=== PATIENT | female | born 1980 | race Caucasian/White ===

== ENCOUNTER 2018-03-08 08:14 | Day surgery (SDC) | payer BC ==
[~2018-03-08 08:14] MED LIST: Acetaminophen TAB* 325 MG PO ONE; Buffered Lidocaine 0.9% SYRIN* 5 ML/SYR SYRINGE INTRADERM ONE; Gabapentin CAP(*) 300 MG PO ONE; Levalbuterol 0.63MG/3ML NEB* UNIT OF USE INH ONE; celeCOXIB CAP* 100 MG PO ONE
[2018-03-08] MEDS ORDERED: Levalbuterol 0.63MG/3ML NEB* UNIT OF USE INH ONE ×2 (08:20→08:49)
[2018-03-08] MEDS ORDERED: Gabapentin CAP(*) 300 MG ONE (08:20)
[2018-03-08] MEDS ORDERED: Acetaminophen TAB* 325 MG ONE (08:20)
[2018-03-08] MEDS ORDERED: celeCOXIB CAP* 100 MG ONE (08:20)
[2018-03-08] MEDS ORDERED: ceFAZolin 2 GM in NS PREMIX(*) 2 GM/100 ML BAG IVPB ONE (08:21)
[2018-03-08] MEDS ORDERED: fentaNYL* 50 MCG/ML 2 ML VIAL (100 MCG VIAL) ONE ×2 (10:13→11:33)
[2018-03-08] MEDS ORDERED: Midazolam* 1 MG/ML 2 ML VIAL (2 MG) ONE (10:14)
[2018-03-08] MEDS ORDERED: Lidocaine 2% PF * 5 ML VIAL ONE (11:11)
[2018-03-08] MEDS ORDERED: Dexamethasone IV* 4 MG/ML 1 ML (4 MG) ONE (11:11)
[2018-03-08] MEDS ORDERED: Ondansetron INJ* 2 MG/ML VIAL ONE (11:11)
[2018-03-08] MEDS ORDERED: Propofol* 10 MG/ML 20 ML BTL IV PUSH ONE (11:11)
[2018-03-08] MEDS ORDERED: Famotidine IV* 10 MG/ML 2 ML (20 mg) ONE (11:11)
[2018-03-08] MEDS ORDERED: Bupivacaine 0.5% SDV PF* 30ML VIAL ONE (11:23)
[2018-03-08] MEDS ORDERED: fentaNYL* 50 MCG/ML 2 ML VIAL (100 MCG VIAL) IV PRN (11:26)
[2018-03-08] MEDS ORDERED: HYDROmorphone INJ1* 1 MG/ML SYRINGE IV PRN (11:26)
[2018-03-08] MEDS ORDERED: DiMENhydriNATE IV* 50 MG/ML VIAL IV PUSH PRN (11:26)
[2018-03-08] MEDS ORDERED: PROCHLORPERAZINE INJ 5 MG/ML 2 ML VIAL IV PRN (11:26)
[2018-03-08] MEDS ORDERED: Levalbuterol 0.63MG/3ML NEB* UNIT OF USE INH PRN (11:26)
[2018-03-08] MEDS ORDERED: Ondansetron INJ* 2 MG/ML VIAL IV PRN (11:26)
[2018-03-08] MEDS ORDERED: HYDROcodone/ACETAMIN 5-325 MG* 1 TAB PO PRN ×2 (11:26)
[2018-03-08] MEDS ORDERED: Naloxone* 0.4 MG/ML 1 ML VIAL IV PRN (11:26)
[2018-03-08] MEDS ORDERED: Acetaminophen TAB* 325 MG PO PRN (11:26)
[2018-03-08] MEDS ORDERED: Ketorolac INJ* 30 MG/ML 1 ML VIAL ONE (12:42)
[2018-03-08 14:19] VITALS: BP 131/76
--- NOTE | 2018-03-09 07:35 | RAD ---
INDICATION: Posterior tibial tendinitis COMPARISONS: None relevant TECHNIQUE: Fluoroscopy was provided for a surgical procedure. Total fluoroscopy time is: 5.1 seconds FINDINGS: Spot images demonstrate osteotomy and fusion of the calcaneus. IMPRESSION: FLUOROSCOPY WAS PROVIDED FOR A SURGICAL PROCEDURE CPT II Codes: G9500
--- NOTE | 2018-03-09 11:20 | OP ---
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 OPERATIVE PROCEDURE: Posterior tibial reconstruction with FPL graft, medial calcaneal osteotomy, and lateral column lengthening. DESCRIPTION OF PROCEDURE: The patient was taken to the operating room where lateral positioning was used for the exposure of the lateral calcaneus and calcaneocuboid joint. We subluxed the peroneal tendons dorsally and then cut through the floor of the peroneus longus with the lateral to medial sagittal saw and straight flat osteotome. We translated the calcaneus a cm medially and pinned this with a 60-mm, 6.7 diameter Arthrex screw from the heel to the sustentacular area of the calcaneus. We also exposed the distal calcaneus and longus lateral border just proximal to the calcaneal cuboid joint where a sagittal saw was used to open the lateral cortex. We used an osteotome to open this osteotomy and placed a wedge cut of allograft that had been harvested from femoral head. We fixed this with H plate of the Arthrex screw using 3.5 mm cortical screws. This lateral wound was then irrigated thoroughly and closed with Vicryl and edis as well as nylon for this heel wound. A longitudinal incision was then made medially along the posterior tibial tendon after we removed the bumps from the left hip. Posterior tibial tendon itself was thickened, indurated, and appeared to have chronic tendinotic changes. This was reflected away from the medial navicular, deep to it what we harvested the FPL tendon, traced it distally to the knot of Artemio where it was sewn [id number] to the FHL tendon. We released it at this level, brought it back proximally, en routed it to plantar to dorsal through the medial navicular using a 5.5-mm drill bit. It was sewn over the top of the periosteum using 0 Vicryl sutures. We then created a of the posterior tibial tendon by debriding longitudinally, thinning it out and taking necrotic deeper portion away. It was then advanced back to the underbelly of the navicular periosteum and sewn [id number] into the FPL tendon. We closed the sheath over the FPL repair closing subcu tissue with 2-0 Vicryl edis for the skin. Compression dressing, plaster splint applied. [id number]/[facility] #: [id number] LOPEZ
== END 2018-03-08 14:45 | disposition home or self-care (01) ==
LOC: OR 08:14
PROVIDERS: ATTEND Orthopaedic Surgery
DX: M76.822 Posterior tibial tendinitis, left leg (principal); M21.172 Varus deformity, not elsewhere classified, left ankle; Z87.891 Personal history of nicotine dependence; Z68.32 Body mass index [BMI] 32.0-32.9, adult; F41.8 Other specified anxiety disorders
CPT/HCPCS: 76000; 81025; A9270-GY; C1713; C1776; J0690; J1100; J1885; J2250; J2405; J2704; J3010

== ENCOUNTER → 2019-01-31 05:42 | Day surgery (SDC) | payer BC ==
[~2019-01-31 05:42] MED LIST changes: +Acetaminophen TAB* 325 MG ONE; -Acetaminophen TAB* 325 MG PO ONE; +Acetaminophen TAB* 325 MG PO PRN; -Buffered Lidocaine 0.9% SYRIN* 5 ML/SYR SYRINGE INTRADERM ONE; +Bupivacaine 0.5%* 50 ML MDV VIAL ONE; +Dexamethasone IV* 4 MG/ML 1 ML (4 MG) ONE; -Gabapentin CAP(*) 300 MG PO ONE; +Gelfoam Sponge SIZE 100* SPONGE ONE; +Ketorolac INJ* 30 MG/ML 1 ML VIAL ONE; -Levalbuterol 0.63MG/3ML NEB* UNIT OF USE INH ONE; +Lidocaine 2% PF * 5 ML VIAL ONE; +Midazolam* 1 MG/ML 2 ML VIAL (2 MG) ONE; +Naloxone* 0.4 MG/ML 1 ML VIAL IV PRN; +Ondansetron INJ* 2 MG/ML VIAL ONE; +PROCHLORPERAZINE INJ 5 MG/ML 2 ML VIAL IV PRN; +Propofol* 10 MG/ML 20 ML BTL ONE; +ROPIVACAINE 5 MG/ML 30 ML BTL (0.5%) ONE; +Sevoflurane* BOTTLE ONE; +ceFAZolin 2 GM in NS PREMIX(*) 2 GM/100 ML BAG IVPB ONE; -celeCOXIB CAP* 100 MG PO ONE; +fentaNYL* 50 MCG/ML 2 ML VIAL (100 MCG VIAL) ONE; +oxyCODONE TAB* 5 MG TAB ONE
[2019-01-31] MEDS: fentaNYL* 50 MCG/ML 2 ML VIAL (100 MCG VIAL) IV PRN ×2 (09:53→10:36)
[2019-01-31 10:32] VITALS: BP 126/81
--- NOTE | 2019-01-31 14:19 | OP ---
DATE OF OPERATION: 01/31/19 - [facility] DATE OF : 76 ATTENDING SURGEON: Juan Bennett MD. CATTLE TESTER: JAMAL Block. PRE-OP DIAGNOSIS: Nonunion left calcaneal osteotomy. POST-OP DIAGNOSIS: Nonunion left calcaneal osteotomy. OPERATIVE PROCEDURE: Internal fixation left calcaneus osteotomy nonunion, hardware removal, and tibial bone graft. DESCRIPTION OF PROCEDURE: The patient was taken to the operating room where lateral positioning was used. We opened up 5 cm over the lateral hind foot incision to develop a plane between the peroneal tendons. Cultures were sent, and there appeared to be an element of metal synovitis around the tendon, dark staining of the tissues. The two locking screws were removed from the previous plate, and we took down the osteotomy site with a Velasquez elevator and prepared the osteotomy surfaces for repeat fixation with the small power bur. Through a 4-cm incision proximally at the tibial tubercle at Gerdy's, we split the ITB band and opened up the lateral cortex with a power bur. We scooped some cancellous bone out of the proximal tibia, placing this well on the nonunion side of the calcaneus. We then closed with 2-0 Monocryl after packing the defect with some allograft chips and some Monocryl for the skin. Distally, we compressed the osteotomy site with the awl wires and used the cuboid plate off of the small Synthes tray to expand the osteotomy and applied compression with the Moorpark pins and locking screws applied. X-rays intraoperatively showed satisfactory fixation. We then closed this wound with 2-0 Vicryl subcu and edis for the skin and a compression dressing plaster splint. [id number]/[facility] #: [id number] MTDD
--- NOTE | 2019-01-31 14:19 | PRO ---
DATE OF PROCEDURE: 01/31/19 PRE-PROCEDURE DIAGNOSIS: Pseudoarthritis, status post left ankle fusion. POST-PROCEDURE DIAGNOSIS: Pseudoarthritis, status post left ankle fusion. INDICATION: The patient had intractable pain postoperatively in her left ankle , requiring postop nerve block with popliteal sciatic nerve block of the left ankle. ESTIMATED BLOOD LOSS: Minimal. DESCRIPTION OF PROCEDURE: The patient was consented for this procedure preoperatively prior to any sedation and she consented to a postoperative procedure if needed. At this time, she is requesting postop pain control with nerve block to which the surgeon was agreeable. She denied any allergies to medications and notes no use of anticoagulants. The patient was placed in the right lateral recumbent position. Her left leg and thigh were prepped and draped in the usual sterile fashion. Ultrasound was used to identify the popliteal artery, left tibial nerve and lateral peroneal nerve. Subsequently, 20 cc of 0.5% ropivacaine plain was injected into the perineural area with a 21-gauge 4-inch EchoStim needle under direct ultrasound visualization. There was negative aspirate of heme. There was no intravascular or intraneural injections. There were no paresthesias. The patient tolerated the entire procedure well with no deficits and had immediate relief of her pain postprocedure. She was then discharged per anesthesia criteria by the PACU nurse. Questions were answered and her concerns otherwise addressed today prior to the procedure. [id number]/[facility] #: [id number] LOPEZ
== END | disposition home or self-care (01) ==
LOC: OR 05:42
PROVIDERS: ATTEND Orthopaedic Surgery
DX: M96.0 Pseudarthrosis after fusion or arthrodesis (principal); M19.90 Unspecified osteoarthritis, unspecified site; J30.2 Other seasonal allergic rhinitis; Z87.891 Personal history of nicotine dependence
CPT/HCPCS: 76000; 81025; 87070; 87073; 87205; 88300; A9270-GY; C1713; C1725; C1776; C9359; J0690; J1100; J1885; J2250; J2405; J2704; J2795; J3010; J3490

== ENCOUNTER → 2019-03-16 14:50 | Day surgery (SDC) | payer BC ==
--- NOTE | 2019-03-15 19:58 | HP ---
CC: Dr. Farah; Dr. Scott * ADMITTING HISTORY AND PHYSICAL: DATE OF ADMISSION: 03/16/19 ADMITTING DIAGNOSES: 1. Right hydronephrosis. 2. Right renal calculi. PLANNED PROCEDURE: Right stent insertion (to be followed in the near future by shockwave lithotripsy or laser lithotripsy). SURGEON: Dr. Scott. HISTORY OF PRESENT ILLNESS: Tejal Segovia is a 39-year-old lady, who has had episodic right flank pain for last 6 weeks. She was noted to have 2 fairly large calculi, 1 in the midpole and 1 in the area of the right renal pelvis with right hydronephrosis. I suspect that she is having intermittent obstruction from one of the stones moving between the mid pole and the renal pelvis and is being brought in for right stent insertion. Given the fairly large stone burden, I offered her a referral to [facility] for right percutaneous nephrolithotripsy, but she would like to try left invasive procedure, either shockwave lithotripsy or ureteroscopy with laser lithotripsy while she does understand that this would need multiple procedures to try to render her stone free. PAST MEDICAL HISTORY: Unremarkable. PAST SURGICAL HISTORY: Significant for left lower extremity tendon repair in January of 2019, appendectomy, and endometrial ablation for dysfunctional bleeding. MEDICATIONS ON ADMISSION: None. ALLERGIES: No known drug allergies. FAMILY HISTORY: Negative for kidney stones. SOCIAL HISTORY: Smoking History: She is a nonsmoker. REVIEW OF SYSTEMS: She is otherwise in excellent health. There is no history of diabetes mellitus or any other major systemic illness. PHYSICAL EXAMINATION GENERAL: Reveals a pleasant, healthy appearing young lady who uses crutches to ambulate because of her recent left leg surgery. VITAL SIGNS: Blood pressure is 132/82, pulse 100 per minute, temperature 96.5, oxygen saturation 98% on room air. LUNGS: Clear bilaterally. CARDIOVASCULAR: Regular rate and rhythm. S1, S2. ABDOMEN: Soft with mild right flank tenderness. IMPRESSION: A 39-year-old lady with right hydronephrosis with 2 right renal calculi (measuring 1.2 and 1.4 cm). PLAN/RECOMMENDATIONS: Planned procedure is right retrograde and right stent insertion (to be followed in the near future by shockwave lithotripsy or laser lithotripsy). [id number]/[facility] #: [id number] [facility]
[~2019-03-16 14:50] MED LIST changes: -Acetaminophen TAB* 325 MG ONE; -Acetaminophen TAB* 325 MG PO PRN; -Bupivacaine 0.5%* 50 ML MDV VIAL ONE; +DiMENhydriNATE IV* 50 MG/ML VIAL IV PUSH PRN; +Famotidine IV* 10 MG/ML 2 ML (20 mg) ONE; -Gelfoam Sponge SIZE 100* SPONGE ONE; +HYDROcodone/ACETAMIN 5-325 MG* 1 TAB PO PRN; +Iohexol 180 (CONTRAST) 10 ML SDV IV ONE; +Ketorolac INJ* 30 MG/ML 1 ML VIAL IV PRN; -Ketorolac INJ* 30 MG/ML 1 ML VIAL ONE; -PROCHLORPERAZINE INJ 5 MG/ML 2 ML VIAL IV PRN; -ROPIVACAINE 5 MG/ML 30 ML BTL (0.5%) ONE; -Sevoflurane* BOTTLE ONE; -ceFAZolin 2 GM in NS PREMIX(*) 2 GM/100 ML BAG IVPB ONE; +cefTRIAXone(*) 2 GM ADDV.VIAL IVPB ONE; +fentaNYL* 50 MCG/ML 2 ML VIAL (100 MCG VIAL) IV PRN; -oxyCODONE TAB* 5 MG TAB ONE; +oxyCODONE/Acetamin 5/325 MG* TAB PO PRN
[2019-03-16 19:00] VITALS: BP 138/85
--- NOTE | 2019-03-16 23:05 | OP ---
DATE OF OPERATION: 03/16/19 - [facility] DATE OF : 76 SURGEON: Duane Scott MD ANESTHESIOLOGIST: Dr. Spence. ANESTHESIA: General. PRE-OP DIAGNOSES: 1. Right hydronephrosis. 2. Right renal calculi. POST-OP DIAGNOSES: 1. Right hydronephrosis. 2. Right renal calculi. OPERATIVE PROCEDURE: Cystoscopy, right retrograde pyelogram, and right stent insertion. COMPLICATIONS: None. POSTOPERATIVE CONDITION: Stable. STENT USED: An 8-Surinamese stent, right ureter. INDICATIONS: Tejal Segovia is a 39-year-old lady with right flank pain secondary to intermittently obstructing right renal calculi. DESCRIPTION OF PROCEDURE: After induction of general anesthesia, the patient was placed in dorsal lithotomy position. Sequential compression devices were in place and functioning. Initial cystoscopy revealed a normal-appearing bladder. A guidewire was introduced into the right ureter. Retrograde pyelogram revealed mild fullness of the right collecting system, and an 8- Surinamese stent was introduced and positioned under fluoroscopy with good proximal and distal positioning obtained. The bladder was emptied. The patient tolerated the procedure satisfactorily and was transferred back to the recovery area in stable condition. [id number]/[facility] #: [id number] MTDD
== END | disposition home or self-care (01) ==
LOC: OR 14:50
PROVIDERS: ATTEND Urology
DX: N13.2 Hydronephrosis with renal and ureteral calculous obstruction (principal)
CPT/HCPCS: 74018; 74420; 81025; C2625; J0696; J1100; J2250; J2405; J2704; J3010

== ENCOUNTER 2019-04-04 08:05 | Day surgery (SDC) | payer BC ==
[~2019-04-04 08:05] MED LIST changes: +Buffered Lidocaine 1% SYRIN* 1 ML/SYRINGE INTRADERM ONE; +Dexamethasone IV* 4 MG/ML 1 ML (4 MG) IV SLOW PU ONE; -Dexamethasone IV* 4 MG/ML 1 ML (4 MG) ONE; -DiMENhydriNATE IV* 50 MG/ML VIAL IV PUSH PRN; +Famotidine IV* 10 MG/ML 2 ML (20 mg) IV ONE; -Famotidine IV* 10 MG/ML 2 ML (20 mg) ONE; -HYDROcodone/ACETAMIN 5-325 MG* 1 TAB PO PRN; -Iohexol 180 (CONTRAST) 10 ML SDV IV ONE; -Ketorolac INJ* 30 MG/ML 1 ML VIAL IV PRN; +Lactated Ringers 1000 ML Bag* 1,000 ML IV SCH; -Lidocaine 2% PF * 5 ML VIAL ONE; -Midazolam* 1 MG/ML 2 ML VIAL (2 MG) ONE; -Naloxone* 0.4 MG/ML 1 ML VIAL IV PRN; -Ondansetron INJ* 2 MG/ML VIAL ONE; -Propofol* 10 MG/ML 20 ML BTL ONE; -cefTRIAXone(*) 2 GM ADDV.VIAL IVPB ONE; -fentaNYL* 50 MCG/ML 2 ML VIAL (100 MCG VIAL) IV PRN; -fentaNYL* 50 MCG/ML 2 ML VIAL (100 MCG VIAL) ONE; -oxyCODONE/Acetamin 5/325 MG* TAB PO PRN
[2019-04-04] MEDS ORDERED: Famotidine IV* 10 MG/ML 2 ML (20 mg) ONE (09:19)
[2019-04-04] MEDS ORDERED: Dexamethasone IV* 4 MG/ML 1 ML (4 MG) ONE (09:19)
[2019-04-04] MEDS ORDERED: cefTRIAXone(*) 2 GM ADDV.VIAL IVPB ONE (09:19)
[2019-04-04] MEDS ORDERED: Midazolam* 1 MG/ML 5 ML VIAL (5 MG) ONE (10:25)
[2019-04-04] MEDS ORDERED: fentaNYL* 50 MCG/ML 2 ML VIAL (100 MCG VIAL) ONE (10:25)
[2019-04-04] MEDS ORDERED: Propofol* 10 MG/ML 20 ML BTL ONE (10:26)
[2019-04-04] MEDS ORDERED: Lidocaine 2% PF * 5 ML VIAL ONE (10:26)
[2019-04-04] MEDS ORDERED: Ondansetron INJ* 2 MG/ML VIAL ONE (10:26)
[2019-04-04] MEDS ORDERED: fentaNYL* 50 MCG/ML 2 ML VIAL (100 MCG VIAL) IV PRN (10:41)
[2019-04-04] MEDS ORDERED: oxyCODONE/Acetamin 5/325 MG* TAB PO PRN (10:41)
[2019-04-04] MEDS ORDERED: Ondansetron INJ* 2 MG/ML VIAL IV PRN (10:41)
[2019-04-04] MEDS ORDERED: DiMENhydriNATE IV* 50 MG/ML VIAL IV PUSH PRN (10:41)
[2019-04-04] MEDS ORDERED: Naloxone* 0.4 MG/ML 1 ML VIAL IV PRN (10:41)
[2019-04-04] MEDS ORDERED: Furosemide IV* 10 MG/ML 2 ML VIAL (20 MG) ONE (11:00)
[2019-04-04 12:58] VITALS: BP 121/79
--- NOTE | 2019-04-04 14:57 | OP ---
OPERATIVE REPORT: DATE OF OPERATION: 04/04/19 DATE OF : 76 SURGEON: Duane Scott MD. ANESTHESIOLOGIST: Dr. Montana. ANESTHESIA: General. PRE-OP DIAGNOSIS: Right renal calculi. POST-OP DIAGNOSIS: Right renal calculi. OPERATIVE PROCEDURE: Shockwave lithotripsy, right renal calculus. COMPLICATIONS: None. POSTOPERATIVE CONDITION: Stable. INDICATIONS: Tejal Segovia is a 39-year-old lady who had undergone urgent right stent insertion because of a large obstructing calculus at the right ureteropelvic junction. In addition, she has a second calculus in the right kidney, and because of the large stone burden, one of the options offered to he r was a referral for percutaneous nephrolithotripsy to [facility]. I have also explained to her because of the large stone burden that she would certainly require more than 1 procedure and she is now bein g brought in for shock wave lithotripsy of the right renal calculi. DESCRIPTION OF PROCEDURE: After induction of general anesthesia, the patient was placed on the litho tripsy table in supine position. There were 2 calculi noted in the right kidney, one being the large calculus in the renal pelvis and a second being an approximately 1 cm calculus just superior to that . I decided to target the 1 cm calculus today on lithotripsy. After induction of general anesthesia, the patient was placed on the lithotripsy table in the supine position. The superior calculus, which measured about 1 cm, was localized using fluoroscopy. Shock wave lithotripsy was commenced at a rate of 60 shocks per minute. After the initial 300 shocks, ther e was a pause in lithotripsy for several minutes in an effort to minimize any potential trauma to the kidney. Lithotripsy was then resumed and periodic imaging revealed adequate localization and a tota l of 2400 shocks were administrated to this calculus. I did not attempt to administer any shock waves to the larger calculus in the renal pelvis as I think that may be better served by laser lithotripsy, which will be scheduled in the near future for her i f she decides to proceed with that. The patient tolerated the procedure satisfactorily and was transferred back to the recovery area in s table condition. [id number]/[facility] #: [id number]
== END 2019-04-04 13:27 | disposition home or self-care (01) ==
LOC: OR 08:05
PROVIDERS: ATTEND Urology
PROC: 0TF3XZZ Fragmentation in Right Kidney Pelvis, External Approach (ICD-10-PCS; principal; 2019-04-04 10:15)
DX: N20.0 Calculus of kidney (principal); Z96.0 Presence of urogenital implants; Z98.890 Other specified postprocedural states; Z90.89 Acquired absence of other organs
CPT/HCPCS: 74018; 81025; J0696; J1100; J1940; J2250; J2405; J2704; J3010

== ENCOUNTER → 2019-04-22 07:32 | Day surgery (SDC) | payer BC ==
--- NOTE | 2019-04-21 16:53 | HP ---
CC: Dr. Dolly Farah DATE OF ADMISSION: 04/22/2019. AGE: 39-year-old female. ADMITTING DIAGNOSES: Right renal calculi. OPERATIVE PROCEDURE: Cystoscopy, right retrograde, right ureteroscopy, laser lithotripsy of right re nal calculi, and right stent replacement. SURGEON: Dr. Duane Scott. HISTORY OF PRESENT ILLNESS: Tejal Segovia is a 39-year-old lady who has undergone urgent right stent in [facility], followed by shockwave lithotripsy. She has been noted to have two fairly large right renal calculi, one in the area of the renal pelvis and one in the mid pole. She had partial fragmentation and is now being brought in for right ureteroscopy and laser lithotripsy in an effort to try and achi dyana more definitive fragmentation of the large calculus in the renal pelvis. PAST MEDICAL HISTORY: Significant for renal calculi. PAST SURGICAL HISTORY: Significant for recent right stent insertion and shockwave lithotripsy. Prio r to that she has had left leg tendon repair in 2019, endometrial ablations, and appendectomy. MEDICATIONS ON ADMISSION: None. ALLERGIES: No known drug allergies. FAMILY HISTORY: Negative for stones. SOCIAL HISTORY: Nonsmoker. REVIEW OF SYSTEMS: She is otherwise in very good health with no history of diabetes mellitus or any other major systemic illness. PHYSICAL EXAMINATION GENERAL: Pleasant, healthy-appearing, young lady. VITAL SIGNS: Blood pressure 130/80, pulse 88 per minute and regular, temperature 96.5, oxygen satura tion 98 percent on room air. CARDIOVASCULAR: Regular rate and rhythm, S1 and S2. LUNGS: Clear bilaterally. ABDOMEN: Soft with mild right flank tenderness. IMPRESSION: Hjqai-zhe-reax-old lady with large right renal calculi with only partial fragmentation with lithotripsy. PLAN: Planned procedure is right ureteroscopy, laser lithotripsy and stent replacement. [id number]/[facility] #: [id number]
[~2019-04-22 07:32] MED LIST changes: -Dexamethasone IV* 4 MG/ML 1 ML (4 MG) IV SLOW PU ONE; +Dexamethasone TAB* 4 MG ONE; +Dexamethasone TAB* 4 MG PO ONE; +DiMENhydriNATE IV* 50 MG/ML VIAL IV PUSH PRN; +Famotidine IV* 10 MG/ML 2 ML (20 mg) ONE; +Furosemide IV* 10 MG/ML 2 ML VIAL (20 MG) ONE; +Gentamicin ADULT (*) 160 MG in NS 0.9% 100 ML* 100 ML IVPB ONE; +HYDROmorphone INJ1* 1 MG/ML SYRINGE IV PRN; +HYDROmorphone INJ1* 1 MG/ML SYRINGE ONE; +Iohexol 180 (CONTRAST) 10 ML SDV IV ONE; +KETAMINE HCL* 50 MG/ML 10 ML VIAL ONE; +Midazolam* 1 MG/ML 5 ML VIAL (5 MG) ONE; +Naloxone* 0.4 MG/ML 1 ML VIAL IV PRN; +Ondansetron ODT TAB* 4 MG ONE; +Ondansetron ODT TAB* 4 MG PO ONE; +PROCHLORPERAZINE INJ 5 MG/ML 2 ML VIAL IV PRN; +PROCHLORPERAZINE INJ 5 MG/ML 2 ML VIAL ONE; +Propofol* 10 MG/ML 20 ML BTL ONE; +Scopolamine 1.5 mg* PATCH TRANSDERM PRN; +Scopolamine PATCH Remove* 1 NOTE MISC PATCH OFF ONE; +cefTRIAXone(*) 2 GM ADDV.VIAL IVPB ONE; +fentaNYL* 50 MCG/ML 2 ML VIAL (100 MCG VIAL) IV PRN; +fentaNYL* 50 MCG/ML 2 ML VIAL (100 MCG VIAL) ONE; +oxyCODONE/Acetamin 5/325 MG* TAB PO PRN
[2019-04-22 13:07] VITALS: BP 135/80
--- NOTE | 2019-04-22 20:45 | OP ---
CC: Dolly Farah MD * DATE OF OPERATION: 04/22/19 - [facility] DATE OF : 76 SURGEON: Duane Scott MD ANESTHESIOLOGIST: Dr. Cool. ANESTHESIA: General. PRE-OP DIAGNOSIS: Right renal calculi. POST-OP DIAGNOSIS: Right renal calculi. OPERATIVE PROCEDURES: Cystoscopy, right stent removal, right retrograde pyelogram, right ureteroscopy, right pyeloscopy, laser lithotripsy of right renal calculi, removal of calculi fragment, and right stent insertion. COMPLICATIONS: None. STENT USED: 8-Congolese [place] stent, right ureter. INDICATIONS: Tejal Segovia is a 39-year-old lady who had undergone urgent stent insertion because of a large obstructing calculus in the right ureteropelvic junction. In addition, she has another large calculus in the upper to mid pole of the right kidney and had previously undergone lithotripsy with partial fragmentation. OPERATIVE FINDINGS: Multiple calculi of right renal pelvis and right upper pole of kidney. POSTOPERATIVE CONDITION: Stable. DESCRIPTION OF PROCEDURE: After induction of general anesthesia, the patient was placed in the dorsal lithotomy position. Sequential compression devices were in place and functioning. The previously placed right stent was removed. Retrograde pyelogram revealed mild fullness of the right collecting system. An access sheath was introduced into the right ureter under fluoroscopic monitoring. A 6-Congolese semirigid ureteroscope was advanced through the access sheath. A calculus in the right renal pelvis was visualized and using a 550- micron holmium laser fiber this was successfully broken up into multiple small pieces. Next, the semirigid ureteroscope was introduced and a flexible ureteroscope was advanced and introduced under fluoroscopic guidance to the upper pole calyx, where 2 calculi or calculus fragments were noted. Using a 360 -micron holmium laser fiber, these were also then fragmented with laser lithotripsy. An 8-Congolese [place] stent was introduced at the end of the procedure and positioned under fluoroscopy with good proximal and distal positioning obtained. The bladder was emptied. My plan is to obtain an x-ray within the next week or 10 days to see any further fragmentation is going to be necessary before stent removal. The patient tolerated the procedure satisfactorily and was transferred back to the recovery area in stable condition. [id number]/[facility] #: [id number] [facility]
== END | disposition home or self-care (01) ==
LOC: OR 07:32
PROVIDERS: ATTEND Urology
DX: N20.0 Calculus of kidney (principal)
CPT/HCPCS: 74420; 81025; 82365; 88300; A9270-GY; C2625; J0696; J0780; J1170; J1580; J1940; J2250; J2704; J3010; J8540

== ENCOUNTER 2019-05-16 06:40 | Day surgery (SDC) | payer BC ==
[~2019-05-16 06:40] MED LIST changes: -Dexamethasone TAB* 4 MG ONE; -Dexamethasone TAB* 4 MG PO ONE; -DiMENhydriNATE IV* 50 MG/ML VIAL IV PUSH PRN; -Famotidine IV* 10 MG/ML 2 ML (20 mg) IV ONE; -Famotidine IV* 10 MG/ML 2 ML (20 mg) ONE; -Furosemide IV* 10 MG/ML 2 ML VIAL (20 MG) ONE; -Gentamicin ADULT (*) 160 MG in NS 0.9% 100 ML* 100 ML IVPB ONE; -HYDROmorphone INJ1* 1 MG/ML SYRINGE IV PRN; -HYDROmorphone INJ1* 1 MG/ML SYRINGE ONE; -Iohexol 180 (CONTRAST) 10 ML SDV IV ONE; -KETAMINE HCL* 50 MG/ML 10 ML VIAL ONE; -Midazolam* 1 MG/ML 5 ML VIAL (5 MG) ONE; -Naloxone* 0.4 MG/ML 1 ML VIAL IV PRN; -Ondansetron ODT TAB* 4 MG ONE; -Ondansetron ODT TAB* 4 MG PO ONE; -PROCHLORPERAZINE INJ 5 MG/ML 2 ML VIAL IV PRN; -PROCHLORPERAZINE INJ 5 MG/ML 2 ML VIAL ONE; -Propofol* 10 MG/ML 20 ML BTL ONE; -Scopolamine 1.5 mg* PATCH TRANSDERM PRN; -Scopolamine PATCH Remove* 1 NOTE MISC PATCH OFF ONE; -cefTRIAXone(*) 2 GM ADDV.VIAL IVPB ONE; -fentaNYL* 50 MCG/ML 2 ML VIAL (100 MCG VIAL) IV PRN; -fentaNYL* 50 MCG/ML 2 ML VIAL (100 MCG VIAL) ONE; -oxyCODONE/Acetamin 5/325 MG* TAB PO PRN
[2019-05-16] MEDS ORDERED: cefTRIAXone(*) 2 GM ADDV.VIAL IVPB ONE (07:38)
[2019-05-16] MEDS ORDERED: Buffered Lidocaine 1% SYRIN* 1 ML/SYRINGE INTRADERM ONE (07:38)
[2019-05-16] MEDS: Sodium Citrate/Citric Acid* 15 ML UDC PO ONE (07:53)
[2019-05-16] MEDS ORDERED: Sodium Citrate/Citric Acid* 15 ML UDC ONE (09:01)
[2019-05-16] MEDS ORDERED: fentaNYL* 50 MCG/ML 2 ML VIAL (100 MCG VIAL) IV PRN (09:07)
[2019-05-16] MEDS ORDERED: Ondansetron INJ* 2 MG/ML VIAL IV PRN (09:07)
[2019-05-16] MEDS ORDERED: Naloxone* 0.4 MG/ML 1 ML VIAL IV PRN (09:07)
[2019-05-16] MEDS ORDERED: Propofol* 10 MG/ML 20 ML BTL ONE (09:22)
[2019-05-16] MEDS ORDERED: Lidocaine 2% PF * 5 ML VIAL ONE (09:22)
[2019-05-16] MEDS ORDERED: fentaNYL* 50 MCG/ML 2 ML VIAL (100 MCG VIAL) ONE (09:23)
[2019-05-16] MEDS ORDERED: Furosemide IV* 10 MG/ML 2 ML VIAL (20 MG) ONE ×2 (09:38→10:23)
[2019-05-16 11:04] VITALS: BP 128/89
--- NOTE | 2019-05-16 12:45 | OP ---
CC: Dr. Farah; Duane Scott MD OPERATIVE REPORT: DATE OF OPERATION: 05/16/19 DATE OF : 76 SURGEON: Duane Scott MD. ANESTHESIOLOGIST: Dr. Ham. ANESTHESIA: General. PRE-OP DIAGNOSIS: Multiple right renal calculi. POST-OP DIAGNOSIS: Multiple right renal calculi. OPERATIVE PROCEDURES: 1. Shockwave lithotripsy of right renal calculi. 2. Cystoscopy and right stent removal. COMPLICATIONS: None. POSTOPERATIVE CONDITION: Stable. INDICATIONS: Tejal Segovia is a 39-year-old lady who had initially been evaluated and noted to have mul tiple large right renal calculi. She had previously undergone shockwave lithotripsy as well as laser lithotripsy with successful fragmentation. She still has some residual clusters of stone fragments a nd is now being brought in for shockwave lithotripsy and stent removal. DESCRIPTION OF PROCEDURE: After induction of general anesthesia, the patient was placed on the litho tripsy table in supine position. There was a cluster of calculi in the upper, mid, and lower pole of the right kidney. Under fluoroscopic monitoring, shockwave lithotripsy was commenced at a rate of 6 0 shocks per minute and a total of 2400 shocks were distributed between the 3 clusters of calculi. Next, the patient was placed in dorsal lithotomy position and cystoscopy was performed. The stent was seen exiting from the right ureter and was removed intact without difficulty. The bladder was empti ed. She will need to be closely monitored as she is at higher risk for steinstrasse (obstructing frag ments lined up in the ureter) because of relatively large stone burden. The patient tolerated the procedure satisfactorily and was transferred back to the recovery area in s table condition. [id number]/[facility] #: [id number]
== END 2019-05-16 11:55 | disposition home or self-care (01) ==
LOC: OR 06:40
PROVIDERS: ATTEND Urology
PROC: 0TF38ZZ Fragmentation in Right Kidney Pelvis, Via Natural or Artificial Opening Endoscopic (ICD-10-PCS; 2019-05-16)
PROC: 0TF3XZZ Fragmentation in Right Kidney Pelvis, External Approach (ICD-10-PCS; principal; 2019-05-16 08:45)
DX: N20.0 Calculus of kidney (principal)
CPT/HCPCS: 81025; A9270-GY; J0696; J1940; J2704; J3010